=== PATIENT | male | born 1965 | race Two or more races ===

== ENCOUNTER 2025-02-24 12:45 | Inpatient (IN) | payer OTHER ==
[2025-02-24 13:55] VITALS: BMI 20.3
[2025-02-24] MEDS ORDERED: MAG HYDROX/AL HYDROX/SIMETH 30 ML UNIT-DOSE CUP PO PRN (14:14)
[2025-02-24] MEDS ORDERED: NICOTINE POLACRILEX 2 MG LOZENGE BC PRN (14:14)
[2025-02-24] MEDS ORDERED: LOPERAMIDE HCL 2 MG CAPSULE PO PRN (14:14)
[2025-02-24] MEDS ORDERED: BENZOCAINE/MENTHOL (CHLORASEPTIC ) LOZENGE MM PRN (14:14)
[2025-02-24] MEDS ORDERED: NICOTINE POLACRILEX 2 MG GUM BUC PRN (14:14)
[2025-02-24] MEDS ORDERED: NALOXONE (NARCAN) HCL 4 MG/0.1 ML SPRAY NS PRN (14:14)
[2025-02-24] MEDS ORDERED: POLYETHYLENE GLYCOL (HEALTHYLAX) 3350 17 GM PACKET PO PRN (14:14)
[2025-02-24] MEDS ORDERED: guaiFENesin 600 MG TABLET.ER (FP) PO PRN (14:14)
[2025-02-24] MEDS ORDERED: MAGNESIUM HYDROX 2400MG/30ML ORAL SUSPENSION 30 ML CUP PO PRN (14:14)
[2025-02-24] MEDS ORDERED: BENZONATATE 200 MG CAPSULE PO PRN (14:14)
[2025-02-24] MEDS ORDERED: SENNOSIDES 8.6MG TABLET (FP) PO PRN (17:23)
[2025-02-24] MEDS: TUBERCULIN PPD 5 TU/0.1ML SYRINGE (IN PATIENT USE ONLY) ID ONE (17:33)
[2025-02-24 21:19] LABS: EPI CELLS 9 /uL (0-25.1); HYALINE CASTS 0 /uL (0-3.1); PH,URINE 5.5 (5.0-8.0); URINE APPEARANCE TURBID; URINE BACTERIA 5 /uL (0-1359); URINE BILIRUBIN NEGATIVE (NEGATIVE); URINE COLOR YELLOW; URINE GLUCOSE (UA) 1+ (NEGATIVE); URINE KETONE TRACE (NEGATIVE); URINE LEUK ESTERASE NEGATIVE (NEGATIVE); URINE NITRITE NEGATIVE (NEGATIVE); URINE PROTEIN 1+ (NEGATIVE); URINE RBC 14 /uL (0-23.9); URINE WBC 7 /uL (0-25.8)
[2025-02-24] MEDS: MELATONIN 5 MG TABLETS PO SCH (21:27)
[2025-02-24] MEDS: THIAMINE 100 MG TABLET PO SCH (21:27)
[2025-02-24] MEDS: BUDESONIDE/FORMETEROL FUMARATE 80/4.5 mcg INHALER IH SCH (21:28)
[2025-02-25] MEDS: BICTEGRAV/EMTRICIT/TENOFOV (BIKTARVY) 50-200-25 MG TABLET PO SCH (07:18)
[2025-02-25 08:16] LABS: POTASSIUM 4.7 mmol/L (3.5-5.1)
[2025-02-25 08:19] LABS: ALBUMIN 2.9 g/dl (3.4-5.0); BLOOD UREA NITROGEN 16.9 mg/dL (7-18); CALCIUM 9.1 mg/dL (8.5-10.1)
[2025-02-25 08:22] LABS: CREATININE 0.9 mg/dL (0.55-1.3)
[2025-02-25 08:24] LABS: BILIRUBIN,TOTAL 0.2 mg/dL (0.2-1); HEMATOCRIT 41.2 % (40.1-51.0); HEMOGLOBIN 13.1 g/dL (13.7-17.5); MCHC 31.8 g/dl (32.3-36.5); MEAN PLT VOLUME 9.9 fl (9.4-12.4); PLATELET COUNT 276 x10^3/uL (163-337); RDW 12.1 % (12.2-16.4); TOT PROT 7.4 g/dl (6.4-8.2)
[2025-02-25] MEDS: GABAPENTIN 400 MG CAPSULE PO SCH (10:24)
[2025-02-25] MEDS: PRENATAL VITAMINS W/ FOLIC ACID TABLET (FP) PO SCH (10:24)
[2025-02-25] MEDS: CHOLECALCIFEROL (VIT D3) 1,000 UNIT (25 MCG) TABLET PO SCH (10:26)
[2025-02-25] MEDS: ARIPiprazole 10 MG TABLET PO SCH (12:08)
[2025-02-25] MEDS: ESCITALOPRAM OXALATE 10 MG TABLET PO SCH (12:08)
[2025-02-27] MEDS: ACETAMINOPHEN 325 MG TABLET (FP) PO PRN (21:12)
[2025-02-28] MEDS: SUVOREXANT 10 MG TABLET PO PRN (21:28)
[2025-03-01] MEDS: ALBUTEROL SO4 HFA INHALER IH PRN (06:21)
[2025-03-01] MEDS: IBUPROFEN 600 MG TABLET (FP) PO PRN (16:49)
[2025-03-02] MEDS: SUVOREXANT 15 MG TABLET PO PRN (21:11)
[2025-03-03] MEDS: BENZOCAINE 20 % GEL TUBE MM PRN (21:10)
[2025-03-05] MEDS: SUVOREXANT 15 MG TABLET PO PRN (21:11)
[2025-03-06] MEDS: CLOTRIMAZOLE 1% CREAM TP SCH (10:35)
[2025-03-06] MEDS: AMOXICILLIN 500 MG CAPSULE (FP) PO SCH (10:35)
[2025-03-06] MEDS: NALTREXONE HCL 50 MG TABLET PO SCH (10:36)
[2025-03-07] MEDS: NALTREXONE HCL 50 MG TABLET PO SCH (09:56)
[2025-03-08] MEDS: SUVOREXANT 15 MG TABLET PO PRN (21:15)
[2025-03-08] MEDS ORDERED: TUBERCULIN PPD 5 TU/0.1ML VIAL ID ONE (21:42)
[2025-03-09] MEDS: IBUPROFEN 400 MG TABLET (FP) PO PRN (02:46)
[2025-03-11] MEDS: SUVOREXANT 15 MG TABLET PO PRN (21:28)
[2025-03-11] MEDS ORDERED: INSULIN (NOVOLOG) ASPART 100 UNITS/ML 10ML VIAL ONE (21:33)
[2025-03-14] MEDS: VARENICLINE TARTRATE 0.5 MG TAB PO SCH (15:55)
[2025-03-14] MEDS: TOLNAFTATE 1% CREAM 15 GM TUBE TP SCH (21:27)
[2025-03-17] MEDS: VARENICLINE TARTRATE 0.5 MG TAB PO SCH (11:00)
[2025-03-17] MEDS: SUVOREXANT 15 MG TABLET PO PRN (21:03)
[2025-03-20] MEDS: LORATADINE 10 MG TABLET PO PRN (09:54)
[2025-03-20] MEDS: VARENICLINE TARTRATE 1 MG TAB PO SCH (09:56)
[2025-03-20] MEDS: SUVOREXANT 15 MG TABLET PO PRN (21:20)
[2025-03-23 06:36] VITALS: BP 125/78; PULSE 87; RESP 16; TEMP 98.2
== END 2025-03-23 09:38 | disposition home or self-care (01) | DRG 772 ==
LOC: YASAS 12:45 → Y3NR 15:25 → Y3E 02-27 10:31
PROVIDERS: ADMIT Psychiatry & Neurology Pain Medicine; ATTEND Psychiatry & Neurology Pain Medicine
PROC: HZ42ZZZ Group Counseling for Substance Abuse Treatment, Cognitive-Behavioral (ICD-10-PCS; principal; 2025-02-24)
DX: F14.10 Cocaine abuse, uncomplicated (principal); F10.20 Alcohol dependence, uncomplicated; F12.20 Cannabis dependence, uncomplicated; F17.210 Nicotine dependence, cigarettes, uncomplicated; F41.9 Anxiety disorder, unspecified; F32.A Depression, unspecified; Z21 Asymptomatic human immunodeficiency virus [HIV] infection status; J45.909 Unspecified asthma, uncomplicated; K08.89 Other specified disorders of teeth and supporting structures; B35.3 Tinea pedis; Z79.899 Other long term (current) drug therapy; Z86.19 Personal history of other infectious and parasitic diseases; Z81.8 Family history of other mental and behavioral disorders
CPT/HCPCS: 36415; 80053; 80305; 80307; 81003; 85027; 86593; 86780; 87811; 93005; 93010